=== PATIENT | female | born 1995 | race Caucasian/White ===

== ENCOUNTER 2016-07-18 02:33 | Emergency (ER) | payer OTHER ==
--- NOTE | ~2016-07-18 | CT4 ---
[facility]. [facility] A Service of [facility] RADIOLOGY TEXT RESULTS PATIENT: AURELIO ROSE LOCATION: SED : [birth year] UNIT #: [id number] AGE: [address]: Bladimir Gonzalez MD SEX: F ORDER DR: [id number] [place] [id number] E MR#: [id number] Acc #: [id number] NAME: AURELIO ROSE : 1995 SEX: F STUDY DATE/TIME: 07/18/2016 3:27 UNIT: SED ROOM: STUDY DESCRIPTION: CT Abd and Pelv Wo Cont Attending Physician: Bladimir Gonzalez M.D. Ordering Physician: Bladimir Gonzalez M.D. Primary Care Physician: Marlyn Deluca A.P.R.N. MEDICAL IMAGING REPORT This report is preliminary unless electronic signature is present. EXAM CT abdomen and pelvis without contrast HISTORY 20-year-old female left-sided flank pain onset 07/17/2016. History of kidney stones. COMPARISON CT abdomen and pelvis 02/27/2015. TECHNIQUE This CT examination was performed with one or more of the following radiation dose reduction techniques: automatic exposure control, adjustment of mA and/or kV according to patient size, and iterative reconstruction. FINDINGS Axial images performed through the abdomen and pelvis without contrast. Multiplanar reconstructed images reviewed at a workstation. ABDOMEN: Lung bases unremarkable. Liver and spleen appear normal. The gallbladder is contracted. Pancreas and adrenal glands unremarkable. There is a punctate nonobstructing stone right kidney. Left kidney demonstrates hydronephrosis and hydroureter with a 3 mm left UVJ stone. There is some surrounding periureteral edema. GI tract remarkable for a large amount of retained gastric contents. Small bowel and colon unremarkable. The appendix is normal. PELVIS: Bladder decompressed. Uterus anteverted. Osseous structures and soft tissues appear normal. IMPRESSION 3 mm left UVJ stone with mild to moderate left-sided hydronephrosis and STS. [facility] A Service of [facility] RADIOLOGY TEXT RESULTS PATIENT: AURELIO ROSE LOCATION: [facility] : [birth year] UNIT #: [id number] AGE: [address]: Bladimir Gonzalez MD SEX: F ORDER DR: hydroureter. There is a punctate nonobstructing right renal stone. Dictated by... Jake Anderson M.D. THIS IS AN ELECTRONICALLY VERIFIED REPORT Jake Anderson M.D. at 07/21/2016 7:23 AM LYDIA/chris TD: 07/18/2016 05:56 JOB #: [id number] MEDICAL IMAGING REPORT Page 1 of 1
[~2016-07-18 02:33] MED LIST: BACTRIM DS TABL1 TA1 PO; DEPO-PROVE150 MG/1 M; FLOMAX0.4 M1 PO; HYDROCODON-ACE1 EAC7 PO; NAPROSYN PO; PYRIDIUM100 MG PO; SEPTRA; ZANTAC150 MG PO; ZOLOFT50 MG PO
[2016-07-18] MEDS ORDERED: CIPRO PO (02:45)
[2016-07-18] MEDS ORDERED: EFFEXOR75 M1 PO (02:45)
[2016-07-18 03:21] LABS: URINE SOURCE CLEAN CATCH
[2016-07-18 03:26] LABS: URINE APPEARANCE HAZY; URINE BILIRUBIN NEG (NEG); URINE BLOOD 3+ (NEG); URINE COLOR YELLOW; URINE GLUCOSE NEG (NORM); URINE KETONE NEG (NEG); URINE NITRATE NEG (NEG); URINE PH 6.5 (5-8); URINE PROTEIN NEG (NEG); URINE UROBILINOGEN 0.2 MG/DL (NORM)
[2016-07-18 03:29] LABS: BASOPHIL% 0.5 % (0-2.5); EOSINOPHIL# 0.3 X10e3 (0-0.7); EOSINOPHIL% 2.5 % (0.0-7.0); HEMATOCRIT 43.6 % (35.0-45.0); HEMOGLOBIN 14.8 gm/dL (12.0-16.0); LYMPHOCYTE# 3.8 X10e3 (1.0-3.5); LYMPHOCYTE% 37.3 % (17.0-45.0); MEAN CELL VOLUME 92.1 FL (83-96); MEAN CORPUSCULAR HEMOGLOBIN 31.2 PG (28-34); MEAN CORPUSCULAR HGB CONC 33.9 g/dL (30-36); MEAN PLATELET VOLUME 8.4 FL (6.5-11.5); MONOCYTE# 1.1 X10e3 (0-1.0); NEUTROPHIL% 48.7 % (40-75); PLATELET COUNT 271 X10e3 (140-420); RED BLOOD COUNT 4.73 X10e (3.90-5.30); RED CELL DISTRIBUTION WIDTH 13.2 % (11.0-15.5); WHITE BLOOD COUNT 10.2 X10e3 (4.0-10.5)
[2016-07-18 03:30] LABS: DIFF IND NO
[2016-07-18 03:33] LABS: MICRO INDICATED? YES; URINE LEUKOCYTE ESTERASE 1+ (NEG)
[2016-07-18 03:34] LABS: URINE RBC 200-300 /[HPF] (0-2)
[2016-07-18 03:35] LABS: CULTURE INDICATED? YES; URINE BACTERIA 1+ (NEG); URINE MUCUS PRESENT; URINE SQUAMOUS EPITHELIAL CELL MANY /[HPF]
[2016-07-18 03:43] LABS: ALBUMIN SERUM 4.2 g/dL (3.5-5.0); BILIRUBIN,TOTAL 0.6 mg/dL (0.2-2.0); BUN/CREATININE RATIO 11.11; CREATININE SERUM 0.9 mg/dL (0.6-1.4); GLOM FILT RATE Estimated 92.8 mL/min (>60); POTASSIUM 3.7 mmol/L (3.5-5.1); PROTEIN TOTAL SERUM 7.1 g/dL (6.0-8.3)
== END 2016-07-18 04:33 | disposition home or self-care (01) ==
LOC: SED 02:33
DX: N13.2 Hydronephrosis with renal and ureteral calculous obstruction (principal); Z87.442 Personal history of urinary calculi; F17.200 Nicotine dependence, unspecified, uncomplicated; Z88.2 Allergy status to sulfonamides; Z79.899 Other long term (current) drug therapy
CPT/HCPCS: 36415; 74176; 80053; 81003; 84703; 85025; 87086; 96361; 96374; 96375; 99284; J2270; J2405

== ENCOUNTER 2016-09-02 14:49 | Emergency (ER) | payer OTHER ==
--- NOTE | ~2016-09-02 | CR7 ---
[facility]. [facility] A Service of [facility] & [facility] RADIOLOGY TEXT RESULTS PATIENT: AURELIO ROSE LOCATION: SED : [birth year] UNIT #: [id number] AGE: [address]: Elke Venegas MD SEX: F ORDER DR: [id number] [address] [address] [id number] E MR#: [id number] Acc #: [id number] NAME: AURELIO ROSE : 1995 SEX: F STUDY DATE/TIME: 09/02/2016 16:47 UNIT: SED ROOM: STUDY DESCRIPTION: CR Abdomen Single AP View Attending Physician: Elke Venegas M.D. Ordering Physician: Elke Venegas M.D. Primary Care Physician: Marlyn Deluca A.P.R.N. MEDICAL IMAGING REPORT This report is preliminary unless electronic signature is present. EXAM Single view abdomen. INDICATION Left flank pain for 2 days. FINDINGS Supine AP radiographs of the abdomen without comparison. The bowel gas pattern is nonobstructive. No free air. There is no acute osseous abnormalities or foreign body. IMPRESSION No acute findings. Dictated by... James Felipe M.D. THIS IS AN ELECTRONICALLY VERIFIED REPORT James Felipe M.D. at 09/03/2016 8:42 AM AMNA/елена TD: 09/03/2016 00:55 JOB #: [id number] MEDICAL IMAGING REPORT Page 1 of 1
[~2016-09-02 14:49] MED LIST changes: +CIPRO PO; +EFFEXOR75 M1 PO
[2016-09-02] MEDS ORDERED: DEPO-PROVE150 MG/11 (15:02)
[2016-09-02 16:10] LABS: URINE APPEARANCE CLEAR; URINE BILIRUBIN NEG (NEG); URINE BLOOD NEG (NEG); URINE COLOR YELLOW; URINE GLUCOSE NEG (NORM); URINE KETONE NEG (NEG); URINE LEUKOCYTE ESTERASE NEG (NEG); URINE NITRATE NEG (NEG); URINE PH 6.5 (5-8); URINE PROTEIN NEG (NEG); URINE SOURCE CLEAN CATCH; URINE UROBILINOGEN 0.2 MG/DL (NORM)
[2016-09-02 16:11] LABS: MICRO INDICATED? NO
== END 2016-09-02 18:11 | disposition home or self-care (01) ==
LOC: SED 14:49
PROVIDERS: Student in an Organized Health Care Education/Training Program
DX: R10.9 Unspecified abdominal pain (principal); F17.200 Nicotine dependence, unspecified, uncomplicated; Z87.442 Personal history of urinary calculi; Z88.2 Allergy status to sulfonamides; Z88.8 Allergy status to other drugs, medicaments and biological substances; Z79.899 Other long term (current) drug therapy
CPT/HCPCS: 74000; 81003; 84703; 99284

== ENCOUNTER 2016-09-08 15:03 | Emergency (ER) | payer OTHER ==
--- NOTE | ~2016-09-08 | CT4 ---
[facility] A Service of [facility] & [facility] RADIOLOGY TEXT RESULTS PATIENT: AURELIO ROSE LOCATION: [facility] : [birth year] UNIT #: [id number] AGE: [address]: Freddie Okeefe MD SEX: F ORDER DR: [id number] [facility] [address] [place], [place] [address] [id number] E MR#: [id number] Acc #: [id number] NAME: AURELIO ROSE : 1995 SEX: F STUDY DATE/TIME: 09/08/2016 16:32 UNIT: [facility] ROOM: STUDY DESCRIPTION: CT Abd and Pelv Wo Cont Attending Physician: Freddie Okeefe M.D. Ordering Physician: Freddie Okeefe M.D. Primary Care Physician: Marlyn Deluca A.P.R.N. MEDICAL IMAGING REPORT This report is preliminary unless electronic signature is present EXAM CT of the abdomen and pelvis INDICATIONS Kidney stones. The patient most recently had a CT of the abdomen and pelvis on July 18, 2016, which showed a left-sided hydroureteronephrosis which was secondary to a 3 mm stone located at the left ureterovesical junction. TECHNIQUE Axial CT images were obtained from the dome of the diaphragm through the symphysis pubis. No oral or intravenous contrast material was administered. This CT exam was performed with one or more of the following radiation dose reduction techniques: automatic exposure control, adjustment of mA and/or kV according to patient size, and iterative reconstruction. FINDINGS Images through the lung bases are clear. No renal stones are identified on the left. There is no hydroureteronephrosis; no distal ureteral or bladder stones are seen. Punctate nonobstructing stones are identified within the right kidney. A small amount of air is seen within the bladder, this is of uncertain clinical significance. Potentially it may be related to prior catheterization. Again no hydronephrosis is seen on either side. Liver and gallbladder appear normal as are the spleen, stomach, proximal small bowel, adrenal glands and pancreas. The appendix is visualized and is within normal limits. There is no evidence of mechanical bowel obstruction. Uterus appears unremarkable. No free fluid or adenopathy is seen within the pelvis. There is a tiny fat-containing umbilical hernia. No aggressive osseous abnormalities are seen [facility] A Service of [facility] & [facility] RADIOLOGY TEXT RESULTS PATIENT: AURELIO ROSE LOCATION: [facility] : [birth year] UNIT #: [id number] AGE: [address]: Freddie Okeefe MD SEX: F ORDER DR: IMPRESSION 1. No urinary stones identified on the left. Patient does have 2 punctate nonobstructing stones within the right kidney. No hydroureteronephrosis is seen on either side, I do not see any distal ureteral or bladder stones. Patient does have some foci of gas within the bladder; this is of uncertain clinical significance. Certainly correlation with any history of recent catheterization is suggested. 2. The appendix is visualized and is within normal limits. 3. No evidence of mechanical bowel obstruction. Dictated by... Robyn Taylor M.D. THIS IS AN ELECTRONICALLY VERIFIED REPORT Robyn Taylor M.D. at 09/11/2016 8:14 AM AFF/to TD: 09/09/2016 11:04 JOB #: [id number] MEDICAL IMAGING REPORT Page 1 of 1 COPY
[~2016-09-08 15:03] MED LIST changes: +DEPO-PROVE150 MG/11
[2016-09-08 15:39] LABS: URINE SOURCE CLEAN CATCH
[2016-09-08 15:52] LABS: BASOPHIL% 0.6 % (0-2.5); EOSINOPHIL# 0.2 X10e3 (0-0.7); EOSINOPHIL% 3.1 % (0.0-7.0); HEMATOCRIT 43.7 % (35.0-45.0); HEMOGLOBIN 14.5 gm/dL (12.0-16.0); LYMPHOCYTE# 2.5 X10e3 (1.0-3.5); LYMPHOCYTE% 33.5 % (17.0-45.0); MEAN CELL VOLUME 92.1 FL (83-96); MEAN CORPUSCULAR HEMOGLOBIN 30.6 PG (28-34); MEAN CORPUSCULAR HGB CONC 33.3 g/dL (30-36); MEAN PLATELET VOLUME 8.7 FL (6.5-11.5); MONOCYTE# 0.9 X10e3 (0-1.0); MONOCYTE% 12.4 % (3.0-12.0); NEUTROPHIL# 3.8 X10e3 (1.5-7.1); NEUTROPHIL% 50.4 % (40-75); PLATELET COUNT 265 X10e3 (140-420); RED BLOOD COUNT 4.75 X10e (3.90-5.30); RED CELL DISTRIBUTION WIDTH 12.5 % (11.0-15.5); WHITE BLOOD COUNT 7.5 X10e3 (4.0-10.5)
[2016-09-08 15:54] LABS: URINE APPEARANCE CLEAR; URINE BILIRUBIN NEG (NEG); URINE BLOOD NEG (NEG); URINE COLOR YELLOW; URINE GLUCOSE NEG (NEG); URINE KETONE NEG (NEG); URINE LEUKOCYTE ESTERASE TRACE (NEG); URINE NITRATE NEG (NEG); URINE PH 6.5 (5-8); URINE PROTEIN NEG (NEG); URINE SPECIFIC GRAVITY 1.023 (1.003-1.035)
[2016-09-08 16:00] LABS: URBCS1 AUWI 0-2 /[HPF] (0-2); URINE BACTERIA AUWI NEG (NEGATIVE); URINE SQUAMOUS EPITHELIAL CELL OCC /[HPF]
[2016-09-08 16:04] LABS: CULTURE INDICATED? NO
[2016-09-08 16:04] LABS: DIFF IND NO
[2016-09-08 16:07] LABS: ALBUMIN SERUM 4.2 g/dL (3.5-5.0); BILIRUBIN, DIRECT 0.1 mg/dL (0.0-0.2); BILIRUBIN,TOTAL 1.1 mg/dL (0.2-2.0); BUN/CREATININE RATIO 11.42; CALCIUM SERUM 8.5 mg/dL (8.4-10.2); CREATININE SERUM 0.7 mg/dL (0.6-1.4); GLOM FILT RATE Estimated 124.7 mL/min (>60); POTASSIUM 3.6 mmol/L (3.5-5.1); PROTEIN TOTAL SERUM 6.8 g/dL (6.0-8.3)
== END 2016-09-08 18:15 | disposition home or self-care (01) ==
LOC: CED 15:03
DX: R10.9 Unspecified abdominal pain (principal); F17.210 Nicotine dependence, cigarettes, uncomplicated; Z87.442 Personal history of urinary calculi; Z88.2 Allergy status to sulfonamides; Z88.8 Allergy status to other drugs, medicaments and biological substances
CPT/HCPCS: 36415; 74176; 80048; 80076; 81003; 83690; 84703; 85025; 96361; 96374; 96375; 99284; J1885; J2405